=== PATIENT | male | born 2000 | race African-American/Black ===

== ENCOUNTER 2023-06-29 12:22 | Emergency (ER) | payer OTHER ==
[~2023-06-29] VITALS: Ht 172.7 cm; Wt 94.3 kg
[2023-06-29 12:24] VITALS: BP 164/95; TEMP 98.2; O2SAT 96
[2023-06-29] MEDS ORDERED: ACETAMINOPHEN 325 MG TAB PO ONE (16:00)
[2023-06-29] MEDS ORDERED: LIDOCAINE 5% (LIDODERM) PATCH TD ONE (16:00)
[2023-06-29] MEDS ORDERED: LIDO5DIS41 TOP (18:23)
[2023-06-29] MEDS ORDERED: IBUP1TAB6 PO (18:23)
== END 2023-06-29 18:38 | disposition home or self-care (01) ==
LOC: M ED 12:22
DX: S29.012A Strain of muscle and tendon of back wall of thorax, initial encounter (principal); Y92.9 Unspecified place or not applicable; Y93.9 Activity, unspecified; Y99.8 Other external cause status; X58.XXXA Exposure to other specified factors, initial encounter